=== PATIENT | male | born 1950 | race Caucasian/White ===

== ENCOUNTER 2024-01-19 08:55 | Day surgery (SDC) | payer MEDICARE, SELFPAY ==
[2024-01-19] VITALS (7 sets, daily range): BP systolic 107–149; BP diastolic 52–64; PULSE 57–91; RESP 16; TEMP 36.1–37.4; O2SAT 95–100; BMI 30.2
--- NOTE | 2024-01-19 09:05 | PCM.HP.BLA ---
History and Physical Date of Admission: 01/19/24 Date of Service: 01/03/24 MR#: [id number] Acct: [id number] Name: ZONIA HANSON Rep #: [id number] : 1950 Provider: Dr. 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 Is patient in pain?: No Allergies Penicillins Allergy (Severe, Verified 01/04/24 15:01) Hives Medications atorvastatin 20 mg tablet mg PO 01/03/24 [History Confirmed 01/03/24] famotidine 20 mg tablet 20 mg PO DAILY 01/03/24 [History Confirmed 01/03/24] omeprazole 40 mg capsule,delayed release 40 mg PO QDAY #30 caps 01/03/24 [Rx Confirmed 01/03/24] tamsulosin 0.4 mg capsule mg PO 01/03/24 [History Confirmed 01/03/24] aspirin 81 mg tablet,delayed release (Adult Aspirin Regimen) 81 mg PO DAILY 01/04/24 [History Confirmed 01/04/24] cholecalciferol (vitamin D3) 50 mcg (2,000 unit) tablet 50 mcg PO DAILY 01/04/24 [History Confirmed 01/04/24] PFSH Medical History (Updated 01/04/24 @ 15:[address] Ophelia Hernandez MD) Arthritis Back problem Surgical History (Updated 01/04/24 @ 14:55 by Jacki Garcia) H/O endoscopic sinus surgery History of lung biopsy Hx of inguinal hernia surgery S/P hernia repair Family History (Updated 01/04/24 @ 14:58 by Jacki Garcia) Father Ulcer DiabetesMother Breast cancer Heart disease Kidney disease Diabetes Social History (Updated 01/04/24 @ 14:59 by Jacki Garcia) Smoking Status: Never smoker alcohol intake: never substance use type: does not use additional social history: pt denies vaping, denies edibles, denies marijuana use pt uses aspirin 3 times a week pt uses ibuprofen as needed. HPI HPI HPI: 73-year-old male presents due to GERD. Patient states he has been on Protonix for about 15 years then did have Nexium never been on omeprazole. Patient's never had an EGD was told back in college that he had ulcers and was started on treatment. Patient is currently now taking famotidine 20 mg daily. Patient states it does help with his symptoms as long as he does not eat late. Patient does have his bed inclined. Patient states he can occasionally get dysphagia which may happen a little bit daily but has never vomited with this and is able to get it go down with liquids. Patient did have a colonoscopy in December 2022 negative per patient. 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 ROS General General: No weight change, appetite, fatigue, colon cancer, breast cancer or weakness HEENT HEENT: Yes difficulty swallowing; No eye injury, eye surgery, swollen glands or hoarseness Endo Endocrine: No thyroid disease, diabetes mellitus, thyroid cancer, Hair loss, heat intolerance or cold intolerance Skin Skin: No rash or changing moles Musc Musculoskeletal: Yes back problems and arthritis; No rheumatoid arthritis, gout or joint pain Cardio Cardiovascular: No murmur, pacemaker, heart disease, atrial fibrillation, high blood pressure, heart attack, heart stent, palpitations, shortness of breat with exertion or chest pain Psych Psychiatric: No depression, anxiety or hearing voices Resp Respiratory: Yes shortness of breath, No sleep apnea, No cough, No COPD, No asthma, No emphysema and No wheezing Gastro Gastrointestinal: No abdominal pain, No nausea or vomiting, No diarrhea, No constipation, No blood in stool, Yes acid reflux, No hemorrhoids, No ulcers, No gallbladder problem and No black,tarry stools Luis Hematologic: Yes blood thinners Additional Details: 81 mg aspirin 3x weekly Neuro Neurologic: Yes numbness, Yes tingling and No weakness Exam Const General: cooperative, healthy appearing, comfortable and no acute distress [facility] Head: normocephalic and atraumatic Neck Neck: supple Resp Effort & Inspection: normal respiratory effort Cardio Rate: regular rate GI Inspection: non-distended Palpation: soft, no hernias and nontender Skin General: no rashes or lesions noted Neuro General: CN's II-XI intact bilaterally Extrem General: normal to inspection Psych Mental Status: mental status grossly normal Attitude: cooperative Assessment and Plan Assessment and Plan (1) GERD (gastroesophageal reflux disease): Status: Acute Orders: Orders EGD 01/19/24 Lenore LILLY PA-C Medications: New omeprazole swallow whole; do not crush, chew, dissolve, cut, break 40 mg PO QDAY [address] Elida Whitehead MD Plan Discussed with patient PPIs are better drug class than just the famotidine. Will have patient start on omeprazole 40 mg p.o. daily. I have discussed the above with the patient. I have offered the patient esophagogastroduodenoscopy for evaluation. I have explained the risks/benefits of the procedure and described the procedure. I have discussed the risks with the patient, including but not limited to: infection, bleeding, perforation of the GI tract requiring emergency surgery, inability to complete the procedure, injury to any internal organs, complications of anesthesia, etc. - the patient understands and agrees to proceed. I have answered all the patient's questions to the patient's satisfaction and the patient has no further questions. Elida Whitehead M.D. Pager: [phone] [facility] [address] [place] [address], [address] [place] [address] Office: [phone] Coding Level of Care Code Off vis,new,level 3 Diagnoses GERD (gastroesophageal reflux disease) K21.9 01/05/24 1221 <Electronically signed by Elida Whitehead MD> Date Elida Whitehead MD
[2024-01-19] MEDS: Lactated Ringers 1,000 ML 15 ML IV (09:20)
--- OUTSIDE RECORDS SUMMARY | 2024-01-19 09:47 | XMS RPT_ITS | CCD ---
Author Name Unknown Address [email or web address] [facility] [address] [place] [address] Organization [facility] Care Team Providers Care Casting And Curing Operator Name Role Phone NONE, NONE Consulting Unavailable NONE, NONE Primary Care Unavailable ROSA HERRERA, DR CASTANEDA Attending Unavailable ROSA HERRERA, DR CASTANEDA Admitting Unavailable NONE, NONE Consulting Unavailable NONE, NONE Primary Care Unavailable ROSA HERRERA, DR CASTANEDA Attending Unavailable ROSA HERRERA, DR CASTANEDA Admitting Unavailable ROAS HERRERA, DR CASTANEDA Admitting Unavailable NONE, NONE Consulting Unavailable NONE, NONE Primary Care Unavailable ROSA HERRERA, DR CASTANEDA Attending Unavailable MARVIN BERGERON Attending Unavailable MARVIN BERGERON Primary Care Unavailable MARVIN BERGERON Admitting Unavailable AVELINO PHILIPPE PA-C Consulting Unavailab le PROVIDER, UNKNOWN Consulting Unavailable Avelino Philippe PA-C Unavailable [facility] Unavailable Rajni Philippe Unavailable Unavailable Wes LOPEZN, Liseth Unavailable Unavailable Shae LOPEZN, Zari Varela Unavailable Unavailab le Unavailable Unavailable Carlos AIRCRAFT ELECTRONICS TECHNICAL OFFICER, Popeye Unavailable Unavailable [facility] Unavailable [phone] Plastic Surgery Provider Unavailable Unavail able Elizabeth AIRCRAFT ELECTRONICS TECHNICAL OFFICER, Silva Unavailable Allergies Allergy Classification Reported Allergen(s) Allergy Type Date of Onset Reaction(s) Facility (1 source) Penicillin Drug Allergy [facility] Repository (14 sources) Penicillin V Drug Allergy [facility], [facility]. Medications Current Medications Medication Drug Class(es) Dates Sig (Normalized) Sig (Original) aspirin 81 mg delayed release oral tablet (14 sources) Platelet Aggregation Inhibitor, Nonsteroidal Anti-inflammatory Drug Aspirin 81 MG Oral Tablet Delayed Release ; 1 3 days a week (81 MG) atorvastatin 20 mg oral tablet (14 sources) HMG-CoA Reductase Inhibitor Start: 09-22-2023 atorvastatin 20 mg tablet ; 1 (one) Tablet QHS for 0 days Quantity: 30 {Tablet} Refills: 1 Ordered: 22-Sep-2023 SAHIL Philippe Start: 22-Sep-2023 Comments: Mail order. Completed/Discontinued Medications Medication Drug Class(es) Dates Sig (Normalized) Sig (Original) doxycycline hyclate 100 mg oral tablet (9 sources) Tetracycline-clas s Drug Start: 12-20-2023 End: 12-21-2023 doxycycline hyclate 100 mg tablet ; 2 (two) tablet one time dose for 1 days Quantity: 2 {Tablet} Refills: 0 Ordered: 20-Dec-2023 SAHIL Philippe Start: 20-Dec-2023 End: 21-Dec-2023 Status: Inactive Problems Active Problems Problem Classification Problem Date Documented Da te Episodic/Chronic Conditions associated with dizziness or vertigo (20 sources) Vertigo; Translations: [Dizziness and giddiness] 11-16-2023 Episodic Deficiency and other anemia (20 sources) Increased hemoglobin; Translations: [Other hemoglobinopathies] 12-23-2023 Chronic E Codes: Natural/environment (18 sources) Tick bite; Translations: [Bitten or stung by nonvenomous insect and other nonvenomous arthropods, initial encounter] 12-20-2023 Episodic Esophageal disorders (20 sources) Gastroesophageal reflux disease; Translations: [Gastro-esophageal reflux disease without esophagitis] 12-28-2022 Chronic Past or Other Problems Problem Classification Problem Date Documented Da te Episodic/Chronic Conditions associated with dizziness or vertigo (13 sources) Conditions associated with dizziness or vertigo 11-16-2023 Unclassified (14 sources) MCR Well Adult - In general the patient feels well with no complaints, has good energy level and is sleeping well. The patient has a balanced diet and takes supplemental vitamins. The patient exercises 3 - 4 times per week (walks, strengthening exercises and uses elliptical.) and sleeps 7 hours per night. The patient denies having trouble with bathing, dressing/grooming, toileting, preparing meals and ambulating. The patient denies having trouble with grocery shopping, driving, use of telephone, housework, laundry, preparing/taking medications and finances. The patient has a Healthcare Power of Esthetics Instructor and a Living Will. 12-28-2022 Unclassified (14 sources) MCR Well Adult - In general the patient feels well with no complaints, has good energy level and is sleeping well. The patient has a balanced diet. The patient exercises 3 - 4 times per week and sleeps 8 (7-8) hours per night. The patient denies having trouble with bathing, dressing/grooming, toileting, preparing meals and ambulating. The patient denies having trouble with grocery shopping, driving, use of telephone, housework, laundry, preparing/taking medications and finances. The patient has a Living Will, but does not have Healthcare Power of Esthetics Instructor. 12-23-2021 Unclassified (7 sources) MCR Well Adult - In general the patient feels well with no complaints. The patient has a balanced diet. The patient exercises 3 - 4 times per week and sleeps 8 hours per night. The patient denies having trouble with bathing, dressing/grooming, toileting, preparing meals and ambulating. The patient denies having trouble with grocery shopping, driving, use of telephone, housework, laundry, preparing/taking medications and finances. 12-23-2023 Results Test Name Value Interpretation Reference Range Facil ity Vital Signs Date Time Vital Sign Value Performing Clinician Sánchez mascorro 12-23-2023 15:48-0500 Diastolic blood pressure 82 mm[Hg] Avelino Philippe PA-C Work Phone: [facility].; [facility]. Encounters Encounter Date Encounter Type Care Provider Facility Start: 01-12-2024 End: 01-12-2024 Orders Avelino Philippe PA-C Work Phone: [facility]. Start: 12-24-2023 End: 12-24-2023 Orders Avelino Philippe PA-C Work Phone: [facility]. Start: 12-23-2023 End: 12-23-2023 Patient encounter procedure Luke Florinda PA-C Work Phone: [employer]; Expert. Start: 12-23-2023 End: 12-23-2023 Periodic preventive med est patient 65yrs& older Luke Florinda PA-C Work Phone: Expert. Start: 12-20-2023 End: 12-20-2023 Medication Luke Florinda PA-C Work Phone: Expert. Start: 12-15-2023 End: 12-15-2023 Orders Avelino RubyFlorinda PA-C Work Phone: Expert. Start: 12-09-2023 End: 12-09-2023 Orders Editake Florinda PA-C Work Phone: Expert. Start: 11-16-2023 End: 11-16-2023 Office outpatient visit 25 minutes Avelino Valdesetler PA-C Work Phone: Expert. Start: 02-10-2023 End: 02-10-2023 ambulatory [facility] Start: 12-28-2022 End: 12-28-2022 Patient encounter procedure Zari Kaufman BILLY Expert.; Expert. Start: 12-28-2022 End: 12-28-2022 Periodic preventive med est patient 65yrs& older Avelino Valdesetler PA-C Work Phone: Expert. Start: 12-21-2022 End: 12-22-2022 Orders Avelino RubyFlorinda PA-C Work Phone: Expert. Start: 04-30-2022 End: 04-30-2022 Admission to establishment Luyancy ValdesFlorinda PA-C Work Phone: Expert. Start: 12-23-2021 End: 02-15-2022 Initial preventive medicine new patient 65yrs&> Luke Florinda PA-C [facility] Start: 12-23-2021 End: 12-23-2021 Patient encounter procedure Luke Florinda PA-C Work Phone: [facility]; [facility] Start: 12-16-2021 End: 12-18-2021 Orders Editake Florinda PA-C Work Phone: [employer] Start: 12-10-2021 End: 12-10-2021 Orders Luke Florinda PA-C Work Phone: [facility] Start: 09-11-2021 End: 09-12-[address] LEONEL LEE MD Facility:[facility] Start: 01-25-2021 End: 01-26-2021 ambulatory NONE NONE Facility:[facility] Start: 01-04-2021 End: 01-05-2021 ambulatory NONE NONE Facility:[facility] Patient encounter procedure Luyancy RubyFlorinda PA-C Work Phone: [facility]; [facility] Patient encounter procedure Popeye Gonzalez LPN [facility].; [facility] Patient encounter procedure Popeye Gonzalez LPN [facility].; [facility] Patient encounter procedure Luke Clay RubyFlorinda PA-C Work Phone: [facility]; [employer] Procedures Date Procedure Procedure Detail Performing Clinician Start: 12-23-2023 End: 12-23-2023 Adv care pln/ no alt dcsn mkr docd or refusal Luke E Florinda PA-C Work Phone: Start: 12-23-2023 End: 12-23-2023 Depression screening Luke Clay RubyFlorinda PA-C Work Phone: Start: 12-23-2023 End: 12-23-2023 Falls risk assessment documented Avelino LILLY-C Work Phone: Start: 12-23-2023 End: 12-23-2023 Pos clin depres scrn f/u doc Avelino Philippe PA-C Work Phone: Start: 12-23-2023 End: 12-23-2023 PPPS, subseq visit Avelino Philippe P A-C Work Phone: Start: 12-23-2023 End: 12-23-2023 Pt falls assess docd w/o fall/injury past year Avelino Philippe PA-C Work Phone: Start: 12-15-2023 End: 12-15-2023 Lab findings surveillance Popeye VILLEGAS Plan of Treatment Date Care Activity Detail Author Start: 01-12-2024 End: 01-12-2024 Polysom 6/>yrs sleep 4/> addl [facility]lando attnd Sleep Study (95500) Date: 12-Jan-2024 [facility]; [facility] Start: 12-31-2023 Nursing evaluation o f patient and report Medical; [facility] Start: 31-Dec-2023 9:40 NURSE, FLOAT Appointment Request [facility], [facility] Start: 12-24-2023 Assay of erythropoietin [facility]; [facility], [facility] Start: 12-24-2023 Jak2 gene analysis [id number] variant [facility]; [facility] Start: 12-24-2023 Assay of ferritin [facility]; [facility], [facility] Start: 12-24-2023 Iron binding [facility]; [facility], [facility] Start: 12-24-2023 Assay of iron [facility]; [facility], [facility] Start: 12-23-2023 Chest x-ray CHEST X-RAY, P A AND LATERAL (59140) Start: 23-Dec-2023 Intent [facility]; Expert. Start: 12-23-2023 Blood count complete auto&auto difrntl wbc CBC, PLATELETS & AUT DIFF (F) (17270) Start: 23-Dec-2023 11:17 Request [employer]; Expert. Start: 12-23-2023 Patient encounter procedure Me dical; PHYSICAL - awv Expert. Start: 23-Dec-2023 10:50 SAHIL Philippe E Appointment Request Expert Start: 12-15-2023 Assay of prostate sp ecific antigen total PSA TOTAL (PROSTATE SPECIFIC ANTIGEN) (68471) Start: 15-Dec-2023 Request [employer]; Expert. Start: 12-15-2023 Comprehensive metabo lic panel CMP w/ GFR* (83817) Start: 15-Dec-2023 Request [employer]; Expert. Start: 12-15-2023 Lipid panel LIPID PANEL (8 0061) Start: 15-Dec-2023 Request [employer]; Expert. Start: 12-15-2023 Nursing evaluation o f patient and report Medical; Nurse visit - [facility] Expert Start: 15-Dec-2023 8:30 ROOM, PROCEDURE (DRAW) Appointment Request Expert Start: 11-16-2023 Antibody borrelia burgdorferi lyme disease Lyme Titer/EIA, reflex IgM and IgG (60311) Start: 16-Nov-2023 14:29 Request [employer]; Expert. Start: 11-16-2023 Sedimentation rate r bc automated ESR (SED RATE) (78209) Start: 16-Nov-2023 14:29 Request [employer]; Expert. Start: 11-16-2023 C-reactive protein C-REACTIVE PROTEIN (92998) Start: 16-Nov-2023 14:29 Request [employer]; Expert. Start: 11-16-2023 Antinuclear antibodies jolynn JOLYNN TITER AND PATTERN (34073) Start: 16-Nov-2023 14:29 Request [employer].; Expert Immunizations Immunization Date Immunization Notes Care Provider Fa jaja 12-23-2023 pneumococcal Conjugate, unspecified formulation Avelino Philippe PA-C Work Phone: [employer].; Expert 12-23-2023 Pneumococcal conjugate, 20 valent (PCV20) Avelino Philippe PA-C Work Phone: [employer].; Expert Payers Date Payer Category Payer Medicare [id number] 1950 Unknown [id number] 1950 Unknown [id number] 1950 Unknown [id number] 1950 Unknown [id number] Unknown [id number] Unknown ANTHEM MEDICARE PREFERRED-PP O Social History Date Type Detail Facility Alcohol Use: Alcohol Use: ; O ccasional alcohol use. [employer].; Expert. Caffeine Use Caffeine Use [employer].; Expert. Current Work Status: Current Work Status: ; Retired. Expert.; Expert. Exercise History: Exercise Histo ry: ; 4 x week. Moderate. Expert.; Expert. Marital status: Marital status: ; Single. Expert.; Expert. Tobacco Use: Tobacco Use: ; Never smoker. Expert.; Expert. Male [employer] Expert. Work Phone: Moderate [employer]; Expert. Work Phone: Single [employer].; Expert. Work Phone: 4 x week [employer].; Expert. Work Phone: Occasional alcohol use [employer].; Expert. Work Phone: Never smoked tobacco Expert.; Expert. Work Phone: Retired [employer].; Expert. Work Phone: Clinical Note 02-18-2023 Note Date & Type Note Facility 02-18-2023 Note [facility] HISTORY & PHYSICAL NAME ACCOUNT SEX AGE ADMIT DISCHARGE PT MED. RECORD# NUMBER DATE DATE TYPE JACKSON HANSON [id number] M 72 02/10/23 2 [id number] ROOM: [facility] DATE OF : 50 DICTATING PHYSICIAN: Marvin Bergeron CHIEF COMPLAINT: Colon cancer screening. HISTORY OF PRESENT ILLNESS: Mr. Hanson is a 72-year-old male who presents for colon cancer screening. He denies any worrisome signs or symptoms at this time. He reports having his last colonoscopy in approximately 2011. PAST MEDICAL HISTORY: GERD. MEDICATIONS: See MAR. ALLERGIES: Penicillin. SOCIAL HISTORY: Negative x3. REVIEW OF SYSTEMS: Ten system review of systems are negative. PHYSICAL EXAMINATION GENERAL APPEARANCE: In general, he is alert, oriented, and appropriate with no acute distress. VITAL SIGNS: On exam, he is afebrile. Vital signs stable, within normal limits. LUNGS: Lungs are clear to auscultation bilaterally. HEART: Regular rate and rhythm. ABDOMEN: Soft, nontender, and nondistended. EXTREMITIES: Extremities show no cyanosis, edema, or gross deformities. NEUROLOGIC: GCS of 15. Cranial nerves II-XII are grossly intact, 5/5 muscle strength in all groups. IMPRESSION: This is a 72-year-old male requiring colon cancer screening. PLAN: I discussed the risks, benefits, and alternatives of colonoscopy. All questions were answered, and he voiced understanding and agreement with the plan. Page 1 of 2 JACKSON HANSON History & Physical JACKSON HANSON :1950 Dictated By: Marvin Bergeron MD 02/10/23 07:29 JOB #: [id number] Transcribed By: clark 02/10/23 08:06 Electronically signed by: E-SIGN DR. BERGERON 02/18/23 11:07 Update to H&P: [ ] No changes: I have examined the patient and reviewed the H&P and there are no changes. [ ] As previously dictated with the following changes: PHYSICIAN SIGNATURE: TIME: DATE: Page 2 of 2 JACKSON HANSON History & Physical [facility] Summary Purpose Family History No Family History Records FoundNo Family History Records FoundNo Family History Records FoundNo Family History Records Found Advance Directives Living Will - Effective on . Expiration date unspecified. Scanned Document is available upon request. Effective:03-Jan-2024 Living Will - Effective on . Expiration date unspecified. Scanned Document is available upon request. Effective:03-Jan-2024 Living Will - Effective on . Expiration date unspecified. Scanned Document is available upon request. Effective:03-Jan-2024 Living Will - Effective on . Expiration date unspecified. Scanned Document is available upon request. Effective:03-Jan-2024 Additional Source Comments (unrecognized sect ion and content) No Status Records FoundNo Status Records FoundNo Status Records FoundNo Status Records Found INFORMATION SOURCE (unrecogn ized section and content) DATE CREATED AUTHOR AUTHOR'S ORGANIZ ATION 05/28/2022 [facility] DATE CREATED AUTHOR AUTHOR'S ORGANIZ ATION 02/19/2023 [facility] DATE CREATED AUTHOR AUTHOR'S ORGANIZ ATION 01/10/2024 [facility] FOR RECORDS PERTAINING TO PATIENTS WHO ARE OR HAVE BEEN ENROLLED IN A CHEMICAL DEPENDENCY/SUBSTANCEABUSE PROGRAM, SOME INFORMATION MAY BE OMITTED. This clinical summary was aggregated from multiple sources. Caution should be exercised in using it in the provision of clinical care. This summary normalizes information from multiple sources, and as a consequence, information in this document may materially change the coding, format and clinical context of patient data. In addition, data may be omitted in some cases. CLINICAL DECISIONS SHOULD BE BASED ON THE PRIMARY CLINICAL RECORDS. [facility] [employer] [facility]. provides no warranty or guarantee of the accuracy or completeness of information in this document.
--- NOTE | 2024-01-19 10:15 | IMM_PTH ---
PATHOLOGY RESULTS PATIENT: ZONIA HANSON LOC: EN U#:[id number] AGE/SX: 73/M ROOM: RE01/19/[address]: Dr. Elida Whitehead MD : 1950 BED: DIS: 01/19/2024 SPEC #: [id number] RECD: 01/19/24 16:36 STATUS: SHERYL RECarmenza #: [id number] EARL: 01/19/24 10:[address]: Elida Whitehead DEPT: IMMUNOHISTOCHEMISTRY RECD BY: Farrah Blanca ENTERED: 01/19/24 16:36 SP TYPE: IMMUNO OTHR DR: VIJAYA Owen Tissues: Stomach, NOS Procedures: H Pylori (initial) PHYSICIAN & INSTITUTION [place] [address] SPECIMEN INFORMATION: Tissue Source: A - Antrum Clinical Info: GERD Specimen Number: [id number] CPT code: 49516 METHODOLOGY: Deparaffinized sections of prefer/formalin-fixed tissue or PAP/DQ stained slides are incubated with monoclonal/polyclonal antibodies/oligonucleotide probes. Localization is made via biotin free immunoperoxidase method. Appropriate controls are performed and reacted as expected. Results on target cell population are indicated in the following table: RESULTS: ANTIBODY / CLONE RESULT Block A H Pylori (polyclonal) negative These tests were developed and their performance characteristics determined by [facility]. They may not have been cleared or approved by the U.S. Food and Drug Administration. The FDA has determined that such clearance or approval is not necessary. The above immunohistochemical/dualISH markers are ordered and reviewed by the Pathologist. INTERPRETATION: A. Antrum, biopsy: Negative for Helicobacter pylori organisms.
--- NOTE | 2024-01-19 10:15 | EGD_PTH ---
PATHOLOGY RESULTS PATIENT: ZONIA HANSON LOC: EN U#:[id number] AGE/SX: 73/M ROOM: RE01/19/[address]: Dr. Elida Whitehead MD : 1950 BED: DIS: 01/19/2024 SPEC #: [id number] RECD: 01/19/24 13:14 STATUS: SHERYL MARÍA #: [id number] EARL: 01/19/24 10:[address]: Elida Whitehead DEPT: SURGICAL PATHOLOGY RECD BY: Kait Guillen ENTERED: 01/19/24 13:15 SP TYPE: EGD BIOPSY OT DR: VIJAYA Owen Tissues: Gastric mucous membrane Esophageal mucous membrane Procedures: Special Stain Group II Surgery Specimen Level IV Alcian Blue/PAS (control) HEADER OPERATION: EGD, biopsy PRE-OP DIAGNOSIS: GERD TISSUE SUBMITTED: A- Antrum biopsy for Histo, B-GE junction biopsy MICROSCOPIC DIAGNOSIS A. Gastric antrum, biopsy; Chronic gastritis. See comment. B. Gastroesophageal junction, biopsy; Chronic inflammation. Changes of reflux. No evidence of goblet cell metaplasia. See comment. /mr 01/20/2024 COMMENT A. The results of immunohistochemistry for Helicobacter pylori will be reported separately ([id number]). Eosinophils are mildly increased in the mucosa. The significance of this is unclear. Clinical correlation is suggested. B. Alcian blue/PAS stain with matched control supports the above diagnosis. MICROSCOPIC DESCRIPTION Slides are reviewed. GROSS DESCRIPTION A. Received in fixative is one container labeled with the patient's name and designated Antrum biopsy. The specimen consists of one irregular fragment of light ziegler soft tissue that measures 0.3 x 0.3 x 0.1 cm. The specimen is totally submitted in one cassette. B. Received in fixative is one container labeled with the patient's name and designated GE junction. The specimen consists of one irregular fragment of light ziegler soft tissue that measures 0.4 x 0.3 x 0.1 cm. The specimen is totally submitted in one cassette. /mr 01/19/2024 TC:3 CPT: 57369,99870y5
--- NOTE | 2024-01-19 10:49 | OP.EGD_ITS ---
Patient Name: Jackson Cooley Procedure Date: 01/19/2024 10:24 AM Date of : 1950 Age: 73 Procedure: Upper GI endoscopy Indications: Heartburn Providers: Elida Whitehead MD Referring MD: Orville Owen Medicines: Monitored Anesthesia Care Patient Profile: This is a 73 year old male. Complications: No immediate complications. Procedure: Pre-Anesthesia Assessment: - Prior to the procedure, a History and Physical was performed, and patient medications and allergies were reviewed. The patient's tolerance of previous anesthesia was also reviewed. The risks and benefits of the procedure and the sedation options and risks were discussed with the patient. All questions were answered, and informed consent was obtained. Prior Anticoagulants: The patient has taken no anticoagulant or antiplatelet agents except for aspirin. ASA Grade Assessment: Per anesthesia. After reviewing the risks and benefits, the patient was deemed in satisfactory condition to undergo the procedure. After obtaining informed consent, the endoscope was passed under direct vision. Throughout the procedure, the patient's blood pressure, pulse, and oxygen saturations were monitored continuously. The Endoscope was introduced through the mouth, and advanced to the second part of duodenum. The upper GI endoscopy was accomplished without difficulty. The patient tolerated the procedure well. Scope In: 10:39:48 AM Scope Out: 10:44:24 AM Total Procedure Duration Time 0 hours 4 minutes 36 seconds Findings: The Z-line was variable and was found 40 cm from the incisors. Biopsies were taken with a cold forceps for histology. Mildly erythematous mucosa without bleeding was found in the gastric antrum. Biopsies were taken with a cold forceps for histology. Biopsies were taken with a cold forceps for Helicobacter pylori cultures. A small hiatal hernia was present. The examined duodenum was normal. No gross lesions were noted in the entire esophagus. Impression: - Z-line variable, 40 cm from the incisors. Biopsied. - Erythematous mucosa in the antrum. Biopsied. - Small hiatal hernia. - Normal examined duodenum. - No gross lesions in the entire esophagus. Recommendation: - Await pathology results. - Discharge patient to home. - Resume previous diet. - Continue present medications. Procedure Code(s): --- Professional --- 06522, Esophagogastroduodenoscopy, flexible, transoral; with biopsy, single or multiple Diagnosis Code(s): --- Professional --- K22.89, Other specified disease of esophagus K31.89, Other diseases of stomach and duodenum K44.9, Diaphragmatic hernia without obstruction or gangrene R12, Heartburn CPT copyright 2021 [employer] [place] [employer]. All rights reserved. The codes documented in this report are preliminary and upon superintendent mechanical review may be revised to meet current compliance requirements. MD Elida Lundberg MD 01/19/2024 10:49:19 AM This report has been signed electronically. Number of Addenda: 0 Note Initiated On: 01/19/2024 10:24 AM
--- NOTE | 2024-01-19 10:50 | OP.CCLET_ITS ---
01/19/2024 Orville Owen Re : Upper GI endoscopy procedure for Jackson Tothr Florinda This procedure was performed on Friday, January 19, 2024. My impressions and recommendations are as follows: Impressions : - Z-line variable, 40 cm from the incisors. Biopsied. - Erythematous mucosa in the antrum. Biopsied. - Small hiatal hernia. - Normal examined duodenum. - No gross lesions in the entire esophagus. Recommendations : - Await pathology results. - Discharge patient to home. - Resume previous diet. - Continue present medications. My findings are described in the full procedure note, which is enclosed. If I can be of further assistance, please feel free to contact me at Doctor phone number(s): , Work: . Sincerely, MD Elida Lundberg MD 01/19/2024 10:49:19 AM This report has been signed electronically.
== END 2024-01-19 11:42 | disposition home or self-care (01) ==
LOC: EN 08:58 → AC 09:00
PROVIDERS: PCP Physician Assistant; Referring Provider Physician Assistant; Visit Provider Surgery
PROC: 0DJ08ZZ Inspection of Upper Intestinal Tract, Via Natural or Artificial Opening Endoscopic (ICD-10-PCS; CPT 43235; principal; 2024-01-19 10:10)
DX: K21.9 Gastro-esophageal reflux disease without esophagitis (principal); Z79.899 Other long term (current) drug therapy; K44.9 Diaphragmatic hernia without obstruction or gangrene; K31.89 Other diseases of stomach and duodenum; K22.89 Other specified disease of esophagus; K29.50 Unspecified chronic gastritis without bleeding
CPT/HCPCS: 43239; 88305; 88313; 88342; J7120; J2405

== ENCOUNTER 2024-03-03 05:44 | Day surgery (SDC) | payer MEDICARE, SELFPAY ==
[2024-03-03] VITALS (8 sets, daily range): BP systolic 111–131; BP diastolic 59–79; PULSE 57–85; RESP 16; TEMP 36.4–36.8; O2SAT 95–98; BMI 30.7
[2024-03-03] MEDS: Lactated Ringers 1,000 ML 15 ML IV (06:24)
--- NOTE | 2024-03-03 07:24 | PCM.HP.BLA ---
History and Physical Date of Admission: 03/03/24 The patient is examined and there are no changes to the H&P dated 02/22/24. Pt with bilateral dermatochalasis. Informed consent was obtained. Pt for bilateral upper blepharoplasty. Assessment & Plan Assessment/Plan (1) Decreased peripheral vision of both eyes: (2) Dermatochalasis of both upper eyelids: PLAN: Plan for bilateral upper blepharoplasty
[2024-03-03] MEDS: Clindamycin 900 MG/50 ML BAG 75 MG IV (07:30)
[2024-03-03] MEDS: Povidone Iodine 30 ML Opthalmic Sol 1 DRP (08:00)
[2024-03-03] MEDS: Tetracaine 0.5% Ophthalmic Bottle 1 DRP (08:00)
[2024-03-03] MEDS: Lidocaine 1% /Epi 1:100 (20ml) 20 ML Vial (08:01)
[2024-03-03] MEDS: Erythromycin Base 1 OPTH.TUBE 1 APPLIC (08:07)
[2024-03-03] MEDS: EPINEPHrine Nasal 0.1% 30 ML Bottle TOPICAL (08:10)
--- NOTE | 2024-03-03 09:20 | DCINST_ITS ---
Discharge Instructions Dressing / Incision Additional Dressing/Incision Instructions:: Keep head elevated (recliner position) when lying down. Maintain the cool compresses today as directed. Follow the instructions given in the office. Follow Up Care Please Follow Up With: Ophelia Hernandez MD When: In 1 week Test Results: Test results from this visit will be discussed in further detail at your follow- up appointment, if applicable. Discharge Plan Admission Attending Provider: Ophelia Hernandez Primary Care Provider: Avelino Neely Discharge Orders/Prescriptions Prescriptions: No Action tamsulosin 0.4 mg capsule 0.4 mg PO QHS atorvastatin 20 mg tablet 20 mg PO QHS aspirin [Adult Aspirin Regimen] 81 mg tablet,delayed release (DR/EC) 81 mg PO MOWEFR Hold Instructions: ON HOLD FOR SURGERY Rx Instructions: pt takes 3 times a week cholecalciferol (vitamin D3) 50 mcg (2,000 unit) tablet 50 mcg PO DAILY sulfamethoxazole-trimethoprim [Bactrim DS] 800-160 mg tablet 1 tab PO BID Qty: 10 0RF erythromycin 5 mg/gram (0.5 %) ointment 1 applic ophthalmic (eye) DAILY Qty: 3.5 0RF omeprazole 40 mg capsule,delayed release(DR/EC) 40 mg PO QHS Rx Instructions: swallow whole; do not crush, chew, dissolve, cut, break multivitamin Tablet 1 tab PO DAILY Referrals / Follow Up: Avelino Neely PA [Primary Care Provider] - Disposition Disposition (needs filled in before D/C Order can be placed): Home, Self Care
--- NOTE | 2024-03-03 09:22 | OP.PCM_ITS ---
Problems Associated Problem List Diagnoses (1) Decreased peripheral vision of both eyes: (2) Dermatochalasis of both upper eyelids: Report of Operation Date of Procedure: 03/03/24 Pre-Operative Diagnosis: Bilateral upper eyelid dermatochalasis. 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 The procedure been thoroughly reviewed with the patient. The patient has been noted to have some slight ptosis of the right eye which he realizes would not be corrected with blepharoplasty but still wishes to proceed. An informed consent was obtained. The potential risks and complications of surgery were reviewed which include but are not exclusive of bleeding, infection, pain, numbness, asymmetry, scar tissue, the need for further surgery, dry eye, DVT, and even . He is marked in the preop holding area prior to surgery. The patient is brought to the operating room and placed under general anesthesia in the supine position. Care is taken to apply a warming blanket, pad all pressure points, apply sequential compression stockings. The face is prepped and draped in the usual sterile fashion. A drop of tetracaine is placed in both eyes and plastic corneal pisano lubricated with erythromycin ophthalmic ointment are placed. Following this, the incisions are made along the premarked lines. The skin is then removed as a single layer. Hemostasis is controlled with cautery. A very small sliver orbicularis oculi is then removed. Again meticulous hemostasis is assured. The incision is tacked together with fast-absorbing gut. Cool compresses were placed on the eye and we directed our attention to the opposite side where the same procedure was performed. Following this, all incisions are closed with a running subcuticular Prolene suture. The suture is affixed at the temples and glabella with Mastisol and Steri-Strips. Cool compresses are maintained on the eyes throughout the procedure. Ophthalmic antibiotic ointment is placed on the incisions. The corneal pisano are removed. He tolerated the procedure well and was taken to the recovery area in an awakening in stable condition. Needle and sponge counts are correct. Complications None Admit VTE Documentation VTE Mechan Device Prophylaxis: SCD's
== END 2024-03-03 10:38 | disposition home or self-care (01) ==
LOC: SDC 05:45 → AC 05:46
PROVIDERS: PCP Physician Assistant; Referring Provider Plastic Surgery; Visit Provider Plastic Surgery
PROC: (CPT 15822; principal; 2024-03-03 07:20)
DX: H02.831 Dermatochalasis of right upper eyelid (principal); H02.834 Dermatochalasis of left upper eyelid; H53.453 Other localized visual field defect, bilateral; E78.00 Pure hypercholesterolemia, unspecified; K21.9 Gastro-esophageal reflux disease without esophagitis; Z87.19 Personal history of other diseases of the digestive system
CPT/HCPCS: 15822; 00103; J7120; J2405

== ENCOUNTER → 2025-04-09 | Outpatient (CLI) | payer MEDICARE, SELFPAY ==
--- NOTE | 2025-04-09 07:32 | US_ITS ---
PROCEDURE: ULTRASOUND ABDOMEN LIMITED 04/09/2025 REASON FOR EXAM: ELEVATED LIVER TRANSAMINASE LEVEL. ATTENTION LIVER. COMPARISON: NO RELEVANT PRIOR. FINDINGS: Liver: Grossly normal size and echotexture. Sagittal measurement of 19.7 cm. No intrahepatic ductal dilatation. Blood flow: Hepatopetal. Gallbladder: No stones, sludge, wall thickening or tenderness. Common bile duct: Normal. 0.5 cm. Pancreas: Visualized portions are sonographically unremarkable. Ascites: Unremarkable. Right kidney: 12.6 x 6.3 x 4.9 cm. 1.7 cm. US/Liver IMPRESSION: NORMAL RIGHT UPPER QUADRANT ULTRASOUND.. Reading Location: [place] [address]
== END | disposition home or self-care (01) ==
PROVIDERS: PCP Physician Assistant; Referring Provider Physician Assistant; Visit Provider Physician Assistant
DX: R74.01 Elevation of levels of liver transaminase levels (principal)
CPT/HCPCS: 76705

== ENCOUNTER → 2025-07-10 | Outpatient (CLI) | payer MEDICARE, SELFPAY ==
--- NOTE | 2025-07-10 08:36 | US_ITS ---
PROCEDURE: ELASTOGRAPHY PARENCHYMA/ORGAN 07/10/2025 REASON FOR EXAM: LIVER STEATOSIS ON US TECHNIQUE: Procedure Code: USELPAROG Modality: US Procedure: ELASTOGRAPHY PARENCHYMA/ORGAN COMPARISON: Prior sonogram of the right upper quadrant dated April 09, 2025. FINDINGS: KPA: 9.7. Velocity: 1.79 m/sec. Metavir score: F3 US/Elastography Parenchyma/Organ IMPRESSION: Moderate hepatic fibrosis. Reading Location: [place] [address]
== END | disposition home or self-care (01) ==
LOC: US 08:29
PROVIDERS: PCP Physician Assistant; Referring Provider Nurse Practitioner Acute Care; Visit Provider Nurse Practitioner Acute Care
DX: R74.01 Elevation of levels of liver transaminase levels (principal)
CPT/HCPCS: 76981

== ENCOUNTER → 2025-07-20 | Outpatient (CLI) | payer MEDICARE, SELFPAY ==
[2025-07-20 12:13] LABS: Prothrombin Time (Protime)PT. 13.7 SECONDS (11.7-14.9)
[2025-07-20 12:24] LABS: Hematocrit 49.3 % (40-54); Hemoglobin 16.4 g/dL (13.0-16.5); Immature Granulocytes Count 0.020 X10^3/uL (0.0-0.0); Mean Corp Hgb Conc 33.3 g/dL (32-36); Mean Corpuscular Volume 85.9 fL (80-94); Mean Platelet Vol. 9.5 fl (6.2-12.0); NRBC Flagged by Analyzer 0 % (0-5); Platelet Count 256 K/mm3 (150-450); RBC Distribution Width CV 14.1 % (11.6-14.6); RBC Distribution Width SD 44.4 fl (35.1-43.9); Red Blood Count 5.74 M/mm3 (4.6-6.2); White Blood Count 6.2 K/mm3 (4.4-11.0)
[2025-07-20 13:21] LABS: AST(SGOT) 43 U/L (<=37); Alanine Aminotransfer ALT/SGPT 67 U/L (<=46); Albumin, Serum 4.5 g/dL (3.4-4.8); Alkaline Phosphatase 51 U/L (40-129); Anion Gap 11 (5-15); BUN 14 mg/dL (4-19); BUN/Creat Ratio 11.5 RATIO (10-20); Bilirubin, Direct 0.27 mg/dL (0.00-0.30); Calcium,Total 9.3 mg/dL (7.6-11.0); Carbon Dioxide 23.1 mmol/L (21.0-32.0); Chloride 103 mmol/L (98-108); Ferritin 67 ng/mL (37-417); Globulin 3.1 g/dL (2.2-4.2); Glucose 98 mg/dL (70-99); Iron 75 ug/dL (65-175); Iron Binding Capacity,Total 326 ug/dL (250-450); Iron Binding Capacity,Unsat 251 ug/dL (228-428); Potassium 4.3 mmol/L (3.3-5.1)
[2025-07-25 07:07] LABS: Albumin 4.0 g/dL (2.9-4.4); Anti-Smooth Muscle ABS 5 Units (0-19); EBV Acute VCA IgM < 36.0 U/mL (0.0-35.9); EBV-VCA IgG > 600.0 U/mL (0.0-17.9); Gamma Globulin 1.4 g/dL (0.4-1.8); Immunoglobulin A 160 mg/dL (61-437); Immunoglobulin G 1362 mg/dL (603-1613); Immunoglobulin M 117 mg/dL (15-143); PROEL- TOTAL PROTEIN 7.1 g/dL (6.0-8.5)
== END | disposition home or self-care (01) ==
LOC: LAB 11:13
PROVIDERS: PCP Physician Assistant; Referring Provider Internal Medicine; Visit Provider Internal Medicine
DX: R74.01 Elevation of levels of liver transaminase levels (principal); B25.9 Cytomegaloviral disease, unspecified; K76.0 Fatty (change of) liver, not elsewhere classified; K21.9 Gastro-esophageal reflux disease without esophagitis; E03.9 Hypothyroidism, unspecified; R73.03 Prediabetes
CPT/HCPCS: 36415; 80053; 82248; 82390; 82728; 82784; 82785; 83036; 83516; 83540; 83550; 84165; 84443; 85025; 85610; 86334; 86664; 86665; 86706; 87496